=== PATIENT | male | born 1995 | race Caucasian/White ===

== ENCOUNTER 2022-03-10 12:54 | Outpatient (CLI) | payer OTHER, SELFPAY ==
[2022-03-10 13:22] LABS: Volume Semen 2.5 mL (2-5)
[2022-03-10 13:29] LABS: Viscosity Semen Droplets
[2022-03-10 13:38] LABS: Epithelial Count Semen 0-4 /hpf; Red Blood Count Semen 0-4 /hpf; Sperm Immotility 60 % (50-60); Sperm Non-Progressive Motility 20 % (5-10); Sperm Progressive Motility 20 % (31-34); White Blood Count Semen 0-4 /hpf
[2022-03-10 13:40] LABS: Pathology Referral Yes
[2022-03-10 15:22] LABS: Side 1 14; Side 2 15
[2022-03-10 16:23] LABS: Sperm Vitality-% Live Sperm 67 %
== END 2022-03-10 12:55 | disposition home or self-care (01) ==
PROVIDERS: PCP Nurse Practitioner Family; Visit Provider Nurse Practitioner
DX: Z01.89 Encounter for other specified special examinations (principal)
CPT/HCPCS: 80503; 89320